=== PATIENT | female | born 1990 | race Two or more races ===

== ENCOUNTER 2023-04-27 23:52 | Emergency (ER) | payer SELFPAY ==
[~2023-04-27] VITALS: Ht 162.6 cm; Wt 66.8 kg
[2023-04-28] MEDS: LIDOCAINE 1% HCL (LOCAL ANESTH.) INJ 20ML MDV ID ONE (01:30)
[2023-04-28] MEDS ORDERED: CEPH500C PO (01:32)
[2023-04-28] MEDS ORDERED: MUPI2OIN2 EX (01:32)
[2023-04-28] MEDS ORDERED: IBUP1TAB5 PO (01:32)
[2023-04-28] MEDS: NEOMYCIN-BACITRACIN-POLYM UNITDOSE PKG TOP OINT TOP ONE (02:09)
[2023-04-28] MEDS: TETANUS-DIPTH-ACEL PERTUSSIS 0.5ML SYR Tdap IM ONE (02:11)
[2023-04-28 02:18] VITALS: BP 113/73; PULSE 99; RESP 86; O2SAT 99
== END 2023-04-28 02:32 | disposition home or self-care (01) ==
LOC: ER 23:52
DX: S61.211A Laceration without foreign body of left index finger without damage to nail, initial encounter (principal); W45.8XXA Other foreign body or object entering through skin, initial encounter; Y93.89 Activity, other specified; Y92.89 Other specified places as the place of occurrence of the external cause; Y99.8 Other external cause status
CPT/HCPCS: 12002; 90471; 90715; 99283; J2001

== ENCOUNTER 2023-05-07 15:44 | Emergency (ER) | payer SELFPAY ==
[~2023-05-07] VITALS: Ht 157.5 cm; Wt 66.9 kg
[~2023-05-07 15:44] MED LIST: CEPH500C PO; IBUP1TAB5 PO; MUPI2OIN2 EX
[2023-05-07 16:39] VITALS: BP 134/69; PULSE 102; RESP 18; O2SAT 98
[2023-05-07] MEDS: LIDOCAINE 1% HCL (LOCAL ANESTH.) INJ 20ML MDV ID ONE (16:52)
[2023-05-07] MEDS: NEOMYCIN-BACITRACIN-POLYM UNITDOSE PKG TOP OINT TOP ONE (17:22)
== END 2023-05-07 17:36 | disposition home or self-care (01) ==
LOC: ER 15:44
DX: S61.211D Laceration without foreign body of left index finger without damage to nail, subsequent encounter (principal); Z79.899 Other long term (current) drug therapy; Z48.00 Encounter for change or removal of nonsurgical wound dressing; X58.XXXD Exposure to other specified factors, subsequent encounter
CPT/HCPCS: 99283; J2001